=== PATIENT | female | born 1995 | race Caucasian/White ===

== ENCOUNTER 2016-08-19 11:28 | Emergency (ER) | payer MEDICAID ==
[~2016-08-19] VITALS: Ht 157.5 cm; Wt 58.5 kg
[2016-08-19 11:42] VITALS: Ht 157.5 cm; Wt 58.5 kg
[2016-08-19] MEDS ORDERED: ACETAMINOPHEN 500 MG TAB PO STA (12:29)
[2016-08-19 12:39] LABS: URINE BLOOD (Dip) POC Negative (NEGATIVE)
[2016-08-19] MEDS ORDERED: CEFTRIAXONE 1 GM INJ IM ONE (13:00)
[2016-08-19] MEDS ORDERED: LIDOCAINE 1% (MDV) 20 ML INJ IM ONE (13:00)
[2016-08-19] MEDS ORDERED: CEPH-443 PO (13:13)
[2016-08-19] MEDS ORDERED: NAPR-260 PO (13:13)
[2016-08-19] MEDS ORDERED: HYDR-906 PO (13:13)
[2016-08-19 13:28] VITALS: BP 118/65; PULSE 96; RESP 18; TEMP 98.9
--- NOTE | 2016-08-19 13:30 | ERD ---
ER Documentation Chief Complaint Date/Time DATE: 08/19/16 TIME: 13:26 Chief Complaint dental pain since yesterday HPI 20-year-old female presents with left-sided dental pain for the past 2 weeks, she also has had a fever and urinary burning, and urgency for the past 2 days. Patient reports that she has had dental pain on and off, with swelling on the left upper side of the face. She has no trouble swallowing, voice changes or drooling. She states that she has generalized body aches, and soreness bilaterally in the lower back. No nausea, vomiting, abdominal pain. ROS All systems reviewed and are negative except as per history of present illness. Medications Home Meds Active Scripts Naproxen* (Naprosyn*) 500 Mg Tablet, 500 MG PO BID Y for PAIN AND/OR INFLAMMATION, #30 TAB Prov:MICHAEL BAILEY PA-C 08/19/16 Hydrocodone/Acetaminophen (Chaplin 5-325 Tablet) 1 Each Tablet, 1 TAB PO Q6H Y for PAIN, #7 TAB Prov:MICHAEL BAILEY PA-C 08/19/16 Cephalexin* (Keflex*) 500 Mg Capsule, 500 MG PO QID for 10 Days, CAP Prov:MICHAEL BAILEY PA-C 08/19/16 Allergies Allergies: Coded Allergies: No Known Drug Allergies (Verified Allergy, Unknown, 05/23/15) PMhx/Soc History of Surgery: No Anesthesia Reaction: No Hx Neurological Disorder: No Hx Respiratory Disorders: No Hx Cardiac Disorders: No Hx Psychiatric Problems: No Hx Miscellaneous Medical Probl: No Hx Alcohol Use: No Hx Substance Use: No Hx Tobacco Use: No Smoking Status: Unknown if ever smoked Physical Exam Vitals Vital Signs Date Time Temp Pulse Resp B/P Pulse Ox O2 Delivery O2 Flow Rate FiO2 08/19/16 13:28 98.9 96 18 118/65 100 Room Air 08/19/16 11:42 100.7 124 18 111/66 100 Physical Exam General: Well-developed, well-nourished. The patient appears in no acute distress. HEENT: Head is normocephalic, atraumatic. No scleral icterus. Pupils are equal , round, and reactive. Oral mucous membranes are moist. No pharyngeal erythema. There is left-sided facial swelling, gingival swelling, small dental abscess. No trismus, voice changes or drooling. Neck: Supple. Nontender. No meningismus. Lungs: Clear to auscultation. Normal air movement. Heart: Regular rate and rhythm. S1 and S2 are normal. No murmurs, gallops, or rubs. Abdomen: Soft, nontender, nondistended. Bowel sounds are normoactive. No CVA tenderness. Extremities: No clubbing or cyanosis. Normal pulses. Moving extremities x 4. No weakness. Neurologic: Alert and oriented 3. No focal deficits. Skin: Normal turgor. No rash or lesions. Results 24 hrs Laboratory Tests Test 08/19/16 12:39 Bedside Urine pH (LAB) 8.5 Bedside Urine Protein (LAB) 1+ Bedside Urine Glucose (UA) Negative Bedside Urine Ketones (LAB) Negative Bedside Urine Blood Negative Bedside Urine Nitrite (LAB) Positive Bedside Urine Leukocyte Esterase (L 1+ Current Medications Medications (Trade) Dose Ordered Sig/[place] Route PRN Reason Start Time Stop Time Status Last Admin Dose Admin Acetaminophen (Tylenol Tab) 1,000 mg ONCE STAT PO 08/19/16 12:29 08/19/16 12:30 DC 08/19/16 12:40 Ceftriaxone Sodium (Rocephin) 1 gm ONCE ONCE IM 08/19/16 13:00 08/19/16 13:02 DC 08/19/16 13:08 Lidocaine (Xylocaine 1% (Mdv) 20 ml) 2 ml ONCE ONCE IM 08/19/16 13:00 08/19/16 13:02 DC 08/19/16 13:08 Procedures/MDM ED course: Patient was given Tylenol 1 g for the fever. Rocephin 1 g with lidocaine with was administered. MDM: 20-year-old female presents with fever, UTI symptoms, and dental abscess. Patient clinically is well-appearing, does not show any signs of septic stones, acute appendicitis, acute cholecystitis, or pancreatitis. She does not exhibit any CVA tenderness however has had a fever associated with urinary complaints and therefore was given Rocephin 1 g to treat for early pyelonephritis. The dental swelling appears to be an early dental abscess with gingival swelling, she does not have any trismus, airway threatening process, and can be followed up with a dentist in the next 1-2 days. Departure Diagnosis: Primary Impression: Tooth disease Additional Impression: UTI (urinary tract infection) Condition: Good Patient Instructions: Understanding Urinary Tract Infections (UTIs), Tooth Abscess Referrals: [facility] YOU HAVE RECEIVED A MEDICAL SCREENING EXAM AND THE RESULTS INDICATE THAT YOU DO NOT HAVE A CONDITION THAT REQUIRES URGENT TREATMENT IN THE EMERGENCY DEPARTMENT. FURTHER EVALUATION AND TREATMENT OF YOUR CONDITION CAN WAIT UNTIL YOU ARE SEEN IN YOUR DOCTORS OFFICE WITHIN THE NEXT 1-2 DAYS. IT IS YOUR RESPONSIBILITY TO MAKE AN APPOINTMENT FOR FOLOW-UP CARE. IF YOU HAVE A PRIMARY DOCTOR --you should call your primary doctor and schedule an appointment IF YOU DO NOT HAVE A PRIMARY DOCTOR YOU CAN CALL OUR PHYSICIAN REFERRAL HOTLINE AT IF YOU CAN NOT AFFORD TO SEE A PHYSICIAN YOU CAN CHOSE FROM THE FOLLOWING [facility] [address] [facility] [address] [facility] [facility] [address] [facility] [facility] [address] [facility] [facility] [address] [facility]. [facility]. [address] [facility]. [facility] YOU HAVE RECEIVED A MEDICAL SCREENING EXAM AND THE RESULTS INDICATE THAT YOU DO NOT HAVE A CONDITION THAT REQUIRES URGENT TREATMENT IN THE EMERGENCY DEPARTMENT. FURTHER EVALUATION AND TREATMENT OF YOUR CONDITION CAN WAIT UNTIL YOU ARE SEEN IN YOUR DOCTORS OFFICE WITHIN THE NEXT 1-2 DAYS. IT IS YOUR RESPONSIBILITY TO MAKE AN APPOINTMENT FOR FOLOW-UP CARE. IF YOU HAVE A PRIMARY DOCTOR --you should call your primary doctor and schedule and appointment IF YOU DO NOT HAVE A PRIMARY DOCTOR YOU CAN CALL OUR PHYSICIAN REFERRAL HOTLINE AT . IF YOU CAN NOT AFFORD TO SEE A PHYSICIAN YOU CAN CHOSE FROM THE FOLLOWING [facility] IN[facility]UTIONS: [facility] [place] [address] [place] [address] [facility] [address] [place] [address] [facility] [address] [place] [address] [facility] URGENT [facility]/SPECIALTIES [facility] DENT[facility] ([facility] walk in clinic) Additional Instructions: Follow-up with a dentist in the next 1-2 days. You Have a urinary tract infection, follow-up with your primary care doctor early next week. See the doctor sooner or return here if your condition worsens before your appointment time. MICHAEL BAILEY PA-C Aug 19, 2016 13:30
== END 2016-08-19 13:28 | disposition home or self-care (01) ==
LOC: FTE 11:28
DX: K08.9 Disorder of teeth and supporting structures, unspecified (principal); N39.0 Urinary tract infection, site not specified
CPT/HCPCS: 81003; 96372; J0696; Z7502; Z7610

== ENCOUNTER 2017-04-11 23:05 | Emergency (ER) | payer MEDICAID ==
[~2017-04-11] VITALS: Ht 160 cm; Wt 59.2 kg
[~2017-04-11 23:05] MED LIST: CEPH-443 PO; HYDR-906 PO; NAPR-260 PO
[2017-04-11 23:10] VITALS: Ht 160 cm; Wt 59.2 kg
[2017-04-12] MEDS ORDERED: KETOROLAC 60 MG INJ IM STA (03:06)
[2017-04-12] MEDS ORDERED: UDTYLC PO (03:11)
[2017-04-12] MEDS ORDERED: IBUP-1542 PO (03:11)
[2017-04-12] MEDS ORDERED: ACYC800T57 PO (03:11)
--- NOTE | 2017-04-12 03:29 | ERD ---
ER Documentation Chief Complaint Chief Complaint mouth soreness/pain x 3 days HPI 21-year-old female presents to emergency department for complaints of a mild sore in the right buccal mucosa, and the angle of the mandible. Patient is complaining of pain, sharp pain, succession scale, as was upon opening and closing the mouth. Patient did not take any medications to help with symptoms. Patient denies any fever chills. Patient denies any sores in other parts of the body. ROS All systems reviewed and are negative except as per history of present illness. Medications Home Meds Active Scripts Ibuprofen* (Motrin*) 600 Mg Tab, 600 MG PO Q6H Y for PAIN AND OR ELEVATED TEMP, #30 TAB Prov:BITA ALVAREZ [employer] 04/12/17 Acetaminophen-Codeine* (Tylenol-Codeine* Liq) [id number] Elix, 7.5 ML PO Q6H Y for PAIN, #4 OZ Prov:BITA ALVAREZ [employer] 04/12/17 Acyclovir* (Zovirax*) 800 Mg Tablet, 800 MG PO 5 TIMES DAILY for 7 Days, TAB Prov:BITA ALVAREZ [employer] 04/12/17 Naproxen* (Naprosyn*) 500 Mg Tablet, 500 MG PO BID Y for PAIN AND/OR INFLAMMATION, #30 TAB Prov:MICHAEL BAILEY PA-C 08/19/16 Hydrocodone/Acetaminophen (Topping 5-325 Tablet) 1 Each Tablet, 1 TAB PO Q6H Y for PAIN, #7 TAB Prov:MICHAEL BAILEY PA-C 08/19/16 Cephalexin* (Keflex*) 500 Mg Capsule, 500 MG PO QID for 10 Days, CAP Prov:MICHAEL BAILEY PA-C 08/19/16 Allergies Allergies: Coded Allergies: No Known Drug Allergies (Verified Allergy, Unknown, 05/23/15) PMhx/Soc Medical and Surgical Hx: pt denies Medical Hx, pt denies Surgical Hx History of Surgery: No Anesthesia Reaction: No Hx Neurological Disorder: No Hx Respiratory Disorders: No Hx Cardiac Disorders: No Hx Psychiatric Problems: No Hx Miscellaneous Medical Probl: No Hx Alcohol Use: No Hx Substance Use: No Hx Tobacco Use: No FmHx Family History: No coronary disease, No diabetes, No other Physical Exam Vitals Vital Signs Date Time Temp Pulse Resp B/P Pulse Ox O2 Delivery O2 Flow Rate FiO2 04/11/17 23:10 97.0 115 20 132/81 98 Physical Exam GENERAL: The patient is well developed and appropriate for usual state of health, in no apparent distress. HEENT: Atraumatic. Ears: Normal tympanic membrane, no erythema or bulging. No ear canal swelling. No ear discharge. Nose: normal nasal turbinates, no erythema or swelling. Normal nasal discharge. Throat: oropharynx clear. No tonsillar swelling or tonsillar exudates. No lymphadenopathy. Noted oral sore in the right buccal mucosa in the angle of mandible CHEST: Clear to auscultation bilaterally. There are no rales, wheezes or rhonchi. HEART: Regular rate and rhythm. No murmurs, clicks, rubs or gallops. No S3 or S4. ABDOMEN: Soft, nontender and nondistended. Good bowel sounds. No rebound or guarding. No gross peritonitis. No gross organomegaly or masses. No Ramirez sign or McBurney point tenderness. BACK: No midline or flank tenderness. EXTREMITIES: Equal pulses bilaterally. There is no peripheral clubbing, cyanosis or edema. No focal swelling or erythema. Full range of motion. Grossly neurovascularly intact. NEURO: Alert and oriented. Cranial nerves 2-12 intact. Motor strength in all 4 extremities with 5/5 strength. Sensation grossly intact. Normal speech and gait. SKIN: There is no apparent rash or petechia. The skin is warm and dry. HEMATOLOGIC AND LYMPHATIC: There is no evidence of excessive bruising or lymphedema. No gross cervical, axillary, or inguinal lymphadenopathy. Results 24 hrs Current Medications Medications (Trade) Dose Ordered Sig/[place] Route PRN Reason Start Time Stop Time Status Last Admin Dose Admin Ketorolac Tromethamine (Toradol) 60 mg ONCE STAT IM 04/12/17 03:06 04/12/17 03:07 DC Acetaminophen/ Hydrocodone Bitart (Topping (5/325)) 1 tab ONCE ONCE PO 04/12/17 03:30 04/12/17 03:31 04/12/17 03:20 Patient was given medication for pain here in emergency department, after treatment, patient verbalized feeling much better. Patient's pain is improved. Procedures/MDM Medical decision making: Patient symptoms was likely is consistent with a oral, oral herpes. No symptoms of oral airway obstruction. No peritonsillar abscess noted. No symptoms of any acute bacterial infection. The symptoms of stridor. Prescription was given for acyclovir, Tylenol with Codeine, ibuprofen, is advised to follow-up with primary care doctor in 2-3 days for reevaluation of symptoms. Patient is advised to return to emergency department for any worsening symptoms. Disposition: Home. Stable Departure Diagnosis: Primary Impression: Mouth sore Condition: Stable Patient Instructions: Herpes: Caring for Sores BITA ALVAREZ NP Apr 12, 2017 03:29
[2017-04-12] MEDS ORDERED: HYDROCODONE/APAP (5/325) TAB PO ONE (03:30)
[2017-04-12 03:46] LABS: URINE BLOOD (Dip) POC Negative (NEGATIVE)
[2017-04-12 03:55] VITALS: BP 118/73; PULSE 93; RESP 16; TEMP 97.6
== END 2017-04-12 04:05 | disposition home or self-care (01) ==
LOC: FTE 23:05
DX: B00.9 Herpesviral infection, unspecified (principal)
CPT/HCPCS: 81003; 96372; J1885; Z7502; Z7610

== ENCOUNTER 2017-05-06 00:51 | Emergency (ER) | END 2017-05-06 05:35 | disposition left against medical advice (07) ==

== ENCOUNTER 2018-02-18 12:18 | Observation (INO) | END 2018-02-19 17:00 | disposition home or self-care (01) ==

== ENCOUNTER 2019-01-02 14:55 | Emergency (ER) | payer OTHER ==
[~2019-01-02] VITALS: Ht 157.5 cm; Wt 61.6 kg
[~2019-01-02 14:55] MED LIST changes: +ACYC800T5 PO; +HYDR-4011 PO; -HYDR-906 PO; +IBUP-1542 PO; -NAPR-260 PO; +OXYC-279 PO; +TRAM50TA PO
[2019-01-02 15:08] VITALS: Ht 157.5 cm; Wt 61.6 kg
[2019-01-02] MEDS ORDERED: ONDANSETRON 4 MG INJ IV STA (15:39)
[2019-01-02] MEDS ORDERED: KETOROLAC 30 MG INJ IV STA (15:39)
[2019-01-02] MEDS ORDERED: SOD CHLORIDE 0.9% 1,000 ML IV STA (15:39)
[2019-01-02] MEDS ORDERED: CEFTRIAXONE 1 GM/50 ML (PMX) 50 ML IVPB ONE (17:30)
[2019-01-02] MEDS ORDERED: morphine 4 MG/ML VIAL IV STA (18:35)
[2019-01-02 21:41] VITALS: BP 118/70; PULSE 78; RESP 14
== END 2019-01-02 21:42 | disposition home or self-care (01) ==
LOC: FTE 14:55 → E/R 21:42
DX: N30.90 Cystitis, unspecified without hematuria (principal); R19.00 Intra-abdominal and pelvic swelling, mass and lump, unspecified site
CPT/HCPCS: 36415; 74176; 80053; 81001; 81025; 83690; 85025; 87086; 96374; 96375; J0696; J1885; J2270; J2405; J7030; Z7502